=== PATIENT | male | born 1950 | race African-American/Black ===

== ENCOUNTER 2018-09-18 18:48 | Emergency (ER) | payer MEDICARE, OTHER ==
[~2018-09-18] VITALS: Ht 182.9 cm; Wt 90.7 kg
[2018-09-18] MEDS ORDERED: cloNIDine HCL 0.1 MG TAB PO ONE (19:30)
[2018-09-18 20:26] LABS: Basophils # (auto) 0 uL; Basophils % (auto) 0.2 % (0.0-2.0); Eosinophils # (auto) 0 uL; Hematocrit 43.7 % (41.0-53.0); Hemoglobin 15.3 g/dL (13.5-17.5); Lymphocytes # (auto) 1.3 uL; Lymphocytes % (auto) 17.2 % (10.0-50.0); Mean Corpuscular Hemoglobin 33.5 pg (28.0-32.0); Mean Corpuscular Hgb Conc. 35.1 g/dL (32.0-36.0); Mean Corpuscular Volume 95.6 fL (80.0-100.0); Monocytes # (auto) 0.4 uL; Monocytes % (auto) 5.2 % (0.0-12.0); Neutrophils # (auto) 5.7 uL; Neutrophils % (auto) 77.4 % (37.0-80.0); Nucleated Red Blood Cells % 0.3 %; Platelet Count (auto) 196 10^3/uL (140-450); Red Blood Cells 4.57 10^6/uL (4.5-5.90); Red Cell Distribution Width 13.8 % (11.8-14.3); White Blood Cell 7.4 10^3/uL (4.4-10.8)
[2018-09-18 20:39] LABS: Alanine Aminotransferase 26 U/L (16-61); Anion Gap 6 (5-15); Aspartate Aminotransferase 23 U/L (15-37); BUN/Creatinine Ratio 14.3; Blood Urea Nitrogen 12 mg/dL (7-18); Calcium 8.3 mg/dL (8.5-10.1); Carbon Dioxide 30 mmol/L (21-32); Chloride 97 mmol/L (98-107); GFR African American 116 mL/min; GFR Non-African American 96 mL/min; Glucose 218 mg/dL (74-106); Lipase 157 U/L (73-393); Potassium 3.4 mmol/L (3.5-5.1); Sodium 133 mmol/L (136-145)
[2018-09-18 20:44] LABS: Alkaline Phosphatase 105 U/L (45-117); Bilirubin, Total 0.8 mg/dL (0.2-1.0); Total Protein 8.2 g/dL (6.4-8.2)
[2018-09-18] MEDS ORDERED: ONDANSETRON HCL 4 MG/2 ML VIAL IV ONE (21:45)
[2018-09-18] MEDS ORDERED: PANTOPRAZOLE 40 MG/10 ML VIAL IV ONE (21:45)
[2018-09-18] MEDS ORDERED: POTASSIUM CHL 20 Meq TABLET PO ONE (22:15)
[2018-09-18 22:27] VITALS: BP 150/91
== END 2018-09-18 22:45 | disposition home or self-care (01) ==
LOC: EDBD 18:48 → ER 19:01
DX: K52.9 Noninfective gastroenteritis and colitis, unspecified (principal); I10 Essential (primary) hypertension; E11.9 Type 2 diabetes mellitus without complications; Z88.0 Allergy status to penicillin
CPT/HCPCS: 36415; 71045; 74176; 80053; 82962; 83690; 84484; 85025; 93005; 94761; 96374; 96375; 99284; C9113; J2405